=== PATIENT | female | born 1985 | race Caucasian/White ===

== ENCOUNTER → 2023-11-14 | Day surgery (SDC) | payer OTHER ==
--- NOTE | 2023-11-14 10:28 | RAD REPORT ---
EXAM DESCRIPTION: US - Guided FNA Non Breast - 11/14/2023 10:09 am CLINICAL HISTORY: E04.1 COMPARISON: No comparisons FINDINGS: Preoperative diagnosis: Right thyroid nodule. Post operative diagnosis: Same. Conscious Sedation: None Fluoroscopy time: None Contrast used: None Estimated blood loss: Minimal Specimens:25 gauge FNA needles x5 The right neck was prepped and draped in the usual sterile fashion. 1% lidocaine was infiltrated into the subcutaneous tissues for local anesthesia. Real time ultrasound scanning of the thyroid demonstr ated 2.6 cm echogenic circumscribed nodule. Under ultrasound guidance, using 25 gauge FNA needles, 5 specimens were obtained of this lesion and sent to pathology for evaluation. There were no complicati ons. IMPRESSION: Technically successful ultrasound-guided right thyroid nodule FNA procedure. .
== END ==
LOC: FNA 09:26
PROVIDERS: ATTEND Otolaryngology
PROC: 0GBH3ZX Excision of Right Thyroid Gland Lobe, Percutaneous Approach, Diagnostic (ICD-10-PCS; principal; 2023-11-14)
DX: E04.1 Nontoxic single thyroid nodule (principal)
CPT/HCPCS: 88162; 88305

== ENCOUNTER 2023-12-28 09:23 | Day surgery (SDC) | payer OTHER ==
[2023-12-28] MEDS ORDERED: Ringers Lactate 1,000 ML IV ONE (09:55)
[2023-12-28 10:30] LABS: Urine Specific Gravity/Preg 1.025 (1.005-1.030)
[2023-12-28] MEDS ORDERED: LIDOCAINE HCL/EPINEPHRINE 20 ML MDV ONE (11:40)
[2023-12-28] MEDS ORDERED: dexAMETHasone 10 MG/ML VIAL ONE (11:44)
[2023-12-28] MEDS ORDERED: LIDOCAINE 1% MPF 5 ML VIAL ONE (11:44)
[2023-12-28] MEDS ORDERED: propofoL 200 MG/20 ML VIAL IV ONE (11:44)
[2023-12-28] MEDS ORDERED: ROCURONIUM 50 MG/5 ML VIAL IV ONE (11:44)
[2023-12-28] MEDS ORDERED: FENTANYL CITR 100 MCG/2 ML ONE (11:44)
[2023-12-28] MEDS ORDERED: ONDANSETRON 4 MG/2 ML VIAL ONE (11:44)
[2023-12-28] MEDS ORDERED: MIDAZOLAM HCL 2 MG/2 ML INJ ONE (11:44)
[2023-12-28] MEDS ORDERED: BUPIVACAINE 0.5% PF 10 ML VIAL ONE (13:59)
[2023-12-28] MEDS: HYDROMORPHONE HCL 1 MG/ML INJ ONE (14:30)
--- NOTE | 2023-12-28 14:45 | P.OP ---
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 Shoulder roll was placed and the neck was extended and the head supported. The neck was palpated and the right thyroid nodule was clinically apparent both by inspection and palpation. A 3 cm incision was designed and planned incision site was injected with 3 mL of 1% lidocaine with epinephrine. The neck was prepped and draped in a standard fashion for thyroid surgery. A 15 blade scalpel was used to incise through the skin and subcutaneous tissue. C ysts judicious cautery was used on the skin edges and Bovie electrocautery was used to divide through the subcutaneous tissues and the platysma. The conservative subplatysmal flaps were elevated using Bovie electrocautery. In the midline there was a moderate-sized vertical blood vessel which was carefully avoided. Edmonds dissectors were used to to elevate the fascia on the right side of this vessel and the midline of the strap muscles was identified. Using the LigaSure the strap muscles were elevated away from this vessel which allowed retraction and the strap muscles were carefully elevated from the anterior surface of the thyroid. The inferior most aspect of the thyroid was completely encompassed by the clinically apparent nodule. During elevation there was no sign of any extrathyroidal extension or fascial adherence to the overlying muscle. Using blunt dissection the inferior pole was easily elevated and dissection was taken up along the lateral aspect of the thyroid. The middle thyroid vein was identified and carefully divided using the LigaSure. Dissection was then carried up superiorly towards the superior pole of the thyroid. Attention was then turned towards the isthmus where the superior and inferior aspects of the isthmus were dissected away from surrounding soft tissues using blunt dissection, Bovie electrocautery and the LigaSure. Once the isthmus had been identified it was carefully elevated from the pretracheal fascia and divided using the LigaSure. The medial aspect of the superior pole was then identified and judiciously dissected from surrounding tissues. A Boykins was used to grasp the superior pole and elevated outwardly and inferiorly in order to better reveal the soft tissue planes. The LigaSure and blunt dissection using the Edmonds dissector and a peanut sponge were used to dissect along the capsule of the thyroid freeing it from underlying tissues. Patient was then turned back towards the isthmus which was elevated off the anterior surface of the trachea. The thyroid was then elevated and rotated medially for further dissection on the lateral and deep aspect with careful attention paid for identification of the nerve. Throughout the course the Nims monitor seemed to alert even when no tension or dissection was being applied to the neck and thyroid. As the thyroid was being elevated on its most medial aspect, careful inspection using loupe magnification as well as stimulation was used intermittently to aid in identification of tissue planes and to rule out adjacent nerve tissue. The nerve was not discretely identified but was stimulating in the tracheoesophageal groove and careful dissection was made directly along the thyroid capsule, finally freeing the thyroid from its soft tissue attachments. Following diss ection and removal of the right thyroid, in the tracheoesophageal groove the nerve stimulated at 0.5 mA with strong signal. The surgical bed was thoroughly irrigated and carefully suctioned. A 10 [place] round OSMIN drain was placed through the skin approximately 2 cm lateral to the right aspect of the incision. The drain was trimmed and placed within the right thyroid bed and secured using a 4-0 nylon suture. The strap muscles were then approximated in the midline with a single 4-0 Vicryl suture. The platysmal and subcutaneous layers were closed in layered fashion using 4-0 Vicryl. The skin was then closed using a subcuticular 4-0 Monocryl suture. Dermabond was applied to the incision as well. During closure, 3 mL of half percent bupivacaine was injected into the skin surrounding the incision and drain site to aid in postoperative pain control. Following completion of the procedure, the patient was extubated and transported to the recovery room in stable condition. Disposition the patient will be discharged home later today in care of her family and follow-up with Dr. Quintanilla in on postop day 3 for removal of the OSMIN drain. The family is given instructions to contact the on-call ENT for any questions, or concerns. Complications: None Drain(s): OSMIN drain Fluids & blood products: See anesthesia record Transferred to: Recovery Room Condition: Good
[2023-12-28] MEDS ORDERED: HYDROCODONE/APAP 7.5/325 MG TAB PO ONE (15:26)
[2023-12-28] MEDS: HYDROCODONE/APAP 7.5/325 MG TAB ONE (15:28)
[2023-12-28 16:24] VITALS: BP 109/71; TEMP 97.7; O2SAT 100
== END 2023-12-28 16:31 | disposition home or self-care (01) ==
LOC: OR 09:23
PROVIDERS: ATTEND Otolaryngology
PROC: 0GTH0ZZ Resection of Right Thyroid Gland Lobe, Open Approach (ICD-10-PCS; principal; 2023-12-28 11:00)
DX: C73 Malignant neoplasm of thyroid gland (principal)
CPT/HCPCS: 81025; 88307; J1100; J1170; J2001; J2250; J2405; J2704; J3010; J7120